=== PATIENT | male | born 1965 | race Caucasian/White ===

== ENCOUNTER 2018-03-08 14:57 | Inpatient (IN) ==
[2018-03-08] MEDS ORDERED: 0.9 % Sodium Chloride 1,000 ML IVC ONE (15:15)
[2018-03-08] MEDS ORDERED: *HR* Metoprolol 5 MG/5 ML VIAL IVP ONE (15:29)
[2018-03-08] MEDS ORDERED: Isovue-370 500 ML INFUS..BTL IV ONE (15:29)
--- NOTE | 2018-03-08 15:51 | Emergency Department Note ---
Disposition Clinical Impression: Atrial flutter with rapid ventricular response, Tobacco abuse Disposition: Admitted As Inpatient Condition: Fair Time of Disposition: 18:03 General Adult HPI - General Chief complaint: ED Recheck/Abnormal Lab/Rx Stated complaint: "abnormal ekg,SHEBA"-from PAT Time Seen by Provider: 03/08/18 15:14 Source: patient Mode of arrival: wheelchair Limitations: no limitations Nursing Notes Reviewed: Yes Vital Signs Reviewed: Yes - History of Present Illness HPI Narrative: 52 year old male with a history of tobacco use, hypertension presents for evaluation of a fast heart rate. Patient states that he was at pre-evaluation testing where he was going to have an operation on his knee and was noted have a fast heart rate. Patient states he did have a history of a fast heart rate by his primary care doctor in the recent past but no evaluation was done at that time. States he been feeling short of breath for the past couple days. Also states chronic anterior chest pain. States it is been persistent. Denies any nausea or vomiting. Denies any fevers. Reports a chronic cough due to smoking. Denies any abdominal pain. Denies history of heart attacks or strokes. Denies history of any arrhythmias. - Related Data Home Medications Medication Instructions Recorded Confirmed Albuterol Sulfate [Proair Hfa] 2 puff IH Q6H PRN 03/08/18 03/08/18 Atenolol/Chlorthalidone [Tenoretic 1 tab PO DAILY 03/08/18 03/08/18 100 Tablet] Cyclobenzaprine [Flexeril] 10 mg PO HS 03/08/18 03/08/18 Gabapentin [Neurontin] 300 mg PO BID 03/08/18 03/08/18 Losartan Potassium [Cozaar] 50 mg PO DAILY 03/08/18 03/08/18 Omeprazole [PriLOSEC] 20 mg PO DAILY 03/08/18 03/08/18 Oxycodone HCl/Acetaminophen 1 tab PO TID PRN 03/08/18 03/08/18 [Percocet 5-325 mg Tablet] Paroxetine [Paxil] 20 mg PO DAILY 03/08/18 03/08/18 Pravastatin Sodium [Pravachol] 20 mg PO DAILY 03/08/18 03/08/18 Umeclidinium [place] [Incruse 1 puff IH DAILY 03/08/18 03/08/18 Ellipta] Allergies Allergy/AdvReac Type Severity Reaction Status Date / Time meloxicam [From Mobic] AdvReac Difficulty Verified 03/08/18 15:48 Breathing All systems ED: reviewed and negative except as stated. Constitutional: Denies: fever Cardiovascular: Reports: chest pain. Denies: palpitations Respiratory: Reports: cough, dyspnea. Denies: sputum production Gastrointestinal: Denies: abdominal pain, nausea, vomiting Past Medical History - Past Medical History Source: patient Physical Exam - General Limitations: no limitations General appearance: alert, in no apparent distress, obese - Head Head exam: atraumatic, normal inspection - Eye Eye exam: Present: normal appearance, EOMI - ENT ENT exam: normal exam, mucous membranes moist - Neck Neck exam: Present: normal inspection - Chest Chest inspection: Present: normal inspection. Absent: symmetric chest wall rise - Respiratory Respiratory exam: Present: normal lung sounds bilaterally. Absent: respiratory distress - Cardiovascular Cardiovascular exam: Present: regular rate, tachycardia. Absent: systolic murmur - Abdominal Exam Abdominal exam: Present: soft, Non-Tender - Extremities Exam Extremities exam: Present: normal inspection. Absent: pedal edema - Back Exam Back exam: Present: normal inspection - Neurological Exam Neurological exam: Present: alert, oriented X3, CN II-XII intact - Skin Skin exam: Present: warm, dry, intact, normal color Course Course Narrative: Patient seen and examined. Patient was noted to have a fast heart rate. Appears to be regular. Appears to be atrial flutter with a rapid rate in the 140s. Patient's blood pressures preserved. Patient will get extensive evaluation including CT [place] chest given his tachycardia as well as his dyspnea over 2 days. Patient will likely require admission. - Reevaluation(s) Reevaluation #1: Patient did not convert with but metoprolol. Time: 16:47 Reevaluation #2: Patient seen and examined. Patient states he would like some pain medication for his back. Typically takes Percocet. Patient also took full dose aspirin prior to ED arrival. Time: 17:58 Reevaluation #3: Patient's heart rate is improving on Cardizem. Time: 18:40 Vital Signs Temperature 98.5 F 03/08/18 15:02 Pulse Rate 134 03/08/18 15:02 Respiratory Rate 20 03/08/18 15:02 Blood Pressure 107/61 03/08/18 15:02 O2 Sat by Pulse Oximetry 97 03/08/18 15:02 Temperature 97.8 F 03/08/18 21:17 Pulse Rate 78 03/08/18 21:17 Respiratory Rate 20 03/08/18 21:17 Blood Pressure 118/91 03/08/18 21:17 O2 Sat by Pulse Oximetry 99 03/08/18 21:17 Oxygen Delivery Oxygen Delivery Room Air Medical Decision Making - MDM Narrative Medical decision making narrative: 52-year-old male persists for evaluation of irregular heart rhythm. Patient was noted to be a flutter with 2-1 conduction. Patient initially was started with Lopressor however did not initially converted with Lopressor and was started on Cardizem drip. Patient remained hemodynamically stable. No history of heart irregularities in the past. Patient had a CTA chest was negative for pulmonary embolism or pneumonia. Patient does have slight elevation of the BNP. Patient benefit from further evaluation regarding his atrial flutter. Patient will also benefit from formal heart echo. Patient is agreeable with this plan of care. - Lab Data Lab results reviewed: Yes I reviewed the patient's lab results. Result diagrams: 03/08/18 15:31 03/08/18 15:31 Lab Results 03/08/18 03/08/18 03/08/18 Range/Units 15:31 15:31 15:32 WBC 12.4 H (4.3-11.1) K/mcL RBC 4.69 (4.19-5.50) M/mcL Hgb 15.1 (12.9-16.9) g/dL Hct 43.0 (37.5-50.1) % MCV 91.7 (83.0-100.0) fL MCH 32.2 (28.0-33.3) pg MCHC 35.1 (31.6-35.5) g/dL RDW 13.8 (11.5-14.5) % Plt Count 289 (140-400) K/mcL MPV 10.3 (9.4-12.4) fL Immature Gran % 0.3 (0-4) % Seg Neutrophils % 67.9 % Lymphocytes % 20.5 % Monocytes % 9.1 % Eosinophils % 1.7 % Basophils % 0.5 % Neutrophils # 8.4 (1.6-8.9) K/mcL Lymphocytes # 2.5 (0.6-4.6) K/mcL Monocytes # 1.1 (0.0-1.3) K/mcL Eosinophils # 0.2 (0.0-0.6) K/mcL Basophils # 0.1 (0.0-0.2) K/mcL Sodium 134 L (136-145) mEq/L Potassium 3.7 (3.5-5.1) mEq/L Chloride 98 (98-107) mEq/L Carbon Dioxide 26 (23-29) mEq/L BUN 22 H (6-20) mg/dL Creatinine 1.15 (0.70-1.30) mg/dL Est GFR ( Amer) > 60 (> 60) Est GFR (Non-Af Amer) > 60 (> 60) BUN/Creatinine Ratio 19 (6-26) Glucose 94 (70-105) mg/dL Calculated Osmolality 281 (280-300) Calcium 9.4 (8.6-10.3) mg/dL Troponin I < 0.03 (< 0.04) ng/mL B-Natriuretic Peptide 154 H (Less than 100) pg/mL TSH 2.592 (0.340-5.600) mcIU/mL - Radiology Data Radiology results reviewed: Yes I reviewed the patient's radiology results. Chest X-Ray 03/08/18 15:07 IMPRESSION: No evidence of acute cardiopulmonary disease. D/ / Zac Hodge MD / Zac Hodge MD Interpreting Provider: Zac Hodge MD Chest CTA 03/08/18 15:29 IMPRESSION: No evidence of pulmonary embolism or acute pulmonary abnormality. D/ / Don Rao MD / Don Rao MD Interpreting Provider: Don Rao MD - EKG Data EKG #1 EKG attestation: Yes I reviewed and interpreted this EKG. Rate: tachycardia Rhythm: A. flutter Rulo/QRS: left axis deviation ST segment depression in: v1, v2 T wave inversions noted in: v1, v2 When compared to previous EKG there are: previous EKG unavailable Interpretation: nonspecific ST-T wave changes EKG #2 EKG attestation: Yes I reviewed and interpreted this EKG. Rate: tachycardia Rhythm: A. flutter Rulo/QRS: left axis deviation ST segment depression in: v1, v2 T wave inversions noted in: v1, v2, v3 Interpretation: nonspecific ST-T wave changes Jose - Jose Situation: Demographics Background: Presenting Complaint Assessment: Vital Signs, Course and respsone to treatment, Patient/Family Expectation Recommendation: Barrier(s) to disposition, Recommendation based on pending studies, treatments, or consults Jose Report Given to: Dr. Nina Garcia Repor Time: 18:03 Attestation Statement - Attestation Attestation: I examined this patient and my medical decision-making was reviewed with the Resident Physician. I agree with the documented findings, disposition and treatment plan as described except to the extent set forth below. Findings consistent with atrial flutter. Rate is now controlled with Cardizem. Patient will be admitted for cardiac consultation. Patient actually presented after preadmission testing found atrial flutter. Patient has no history of atrial flutter. Stable at time of admission. I spent greater than 35 minutes of critical care time resuscitating C acutely ill patient suffering from atrial flutter requiring multiple medications including Cardizem infusion. This was excluding billable procedures.
[2018-03-08 16:02] LABS: Basophils # 0.1 K/mcL (0.0-0.2); Basophils % 0.5 %; Eosinophils # 0.2 K/mcL (0.0-0.6); Eosinophils % 1.7 %; Hemoglobin 15.1 g/dL (12.9-16.9); Immature Granulocytes % 0.3 % (0-4); Lymphocytes # 2.5 K/mcL (0.6-4.6); Lymphocytes % 20.5 %; Mean Corpuscular HGB Conc 35.1 g/dL (31.6-35.5); Mean Corpuscular Hemoglobin 32.2 pg (28.0-33.3); Mean Corpuscular Volume 91.7 fL (83.0-100.0); Mean Platelet Volume 10.3 fL (9.4-12.4); Monocytes # 1.1 K/mcL (0.0-1.3); Monocytes % 9.1 %; Neutrophils # 8.4 K/mcL (1.6-8.9); Platelet Count 289 K/mcL (140-400); Red Blood Count 4.69 M/mcL (4.19-5.50); Red Cell Distribution Width 13.8 % (11.5-14.5); Segmented Neutrophils % 67.9 %
[2018-03-08 16:27] LABS: BUN/Creatinine Ratio 19 (6-26); Blood Urea Nitrogen 22 mg/dL (6-20); Calcium 9.4 mg/dL (8.6-10.3); Carbon Dioxide 26 mEq/L (23-29); Chloride 98 mEq/L (98-107); Glucose 94 mg/dL (70-105); Osmolality,Calculated 281 (280-300); Potassium 3.7 mEq/L (3.5-5.1); Sodium 134 mEq/L (136-145); eGFR For Non-African Americans > 60 (> 60)
[2018-03-08 16:28] LABS: Troponin I < 0.03 ng/mL (< 0.04)
[2018-03-08 16:42] LABS: Thyroid Stimulating Hormone 2.592 mcIU/mL (0.340-5.600)
[2018-03-08] MEDS ORDERED: *HR* OxyCODONE/APAP 5/325 TABLET PO ONE (17:57)
[2018-03-08] MEDS ORDERED: Naloxone 0.4 MG/ML INJ IVP PRN (18:28)
[2018-03-08] MEDS ORDERED: *HR* Heparin 5,000 UNIT/ML VIAL IVP PRN ×2 (18:33)
[2018-03-08] MEDS ORDERED: *HR* Heparin 5,000 UNIT/ML VIAL IVP ONE (18:33)
--- NOTE | 2018-03-08 18:35 | Internal Med History&Physical ---
Date of Encounter: 03/08/18 Time of Encounter: 18:00 Internal Medicine - H&P: HPI Chief complaint: intermittent SOB History of present illness: Mr. Bergman is a 52 year old male with PMHx of HTN, morbid obesity, tobacco use, presented to the ED for mx of aflutter. He underwent pre-operative testing for L knee arthroscopy when his EKG showed aflutter with 2:1 conduction. No ischemic changes noted. Of note, patient had been experiencing intermittent SOB but denies chest pain, N/V, palpitation, diaphoresis, orthopnea, PND, and LE swelling. No fever/chills, GI or symptoms. No joint pain, rash, heat intolerance, or weight loss. On presentation to the ED, his HR was 150, again in aflutter with RVR. Labs were largely unremarkable with an exception of mild leukocytosis. TSH and electrolytes WNL. CT chest angio was not significant. He was given IV lopressor with minimal HR control hence was started on dilt gtt and admitted for further mx. Past Med Surg Social Fam HX - Past Medical History Attestation: Yes The following information was validated with the patient. Medical history: arthritis, COPD, hyperlipidemia, hypertension Psychiatric history: anxiety, depression - Past Surgical History Additional surgical history: knee surgery mult. injections to back - Social History Smoking Status: Current every day smoker Smokeless Tobacco Status: No Alcohol use: occasionally Drug use: none Internal Medicine - H&P: Meds Albuterol Sulfate [Proair Hfa] 2 puff IH Q6H PRN 03/08/18 [History] Atenolol/Chlorthalidone [Tenoretic 100 Tablet] 1 tab PO DAILY 03/08/18 [History] Cyclobenzaprine [Flexeril] 10 mg PO HS 03/08/18 [History] Gabapentin [Neurontin] 300 mg PO BID 03/08/18 [History] Losartan Potassium [Cozaar] 50 mg PO DAILY 03/08/18 [History] Omeprazole [PriLOSEC] 20 mg PO DAILY 03/08/18 [History] Oxycodone HCl/Acetaminophen [Percocet 5-325 mg Tablet] 1 tab PO TID PRN [History] Paroxetine [Paxil] 20 mg PO DAILY 03/08/18 [History] Pravastatin Sodium [Pravachol] 20 mg PO DAILY 03/08/18 [History] Umeclidinium [place] [Incruse Ellipta] 1 puff IH DAILY 03/08/18 [History] 3 Allergy/AdvReac Type Severity Reaction Status Date / Time meloxicam [From Mobic] AdvReac Difficulty Verified 03/08/18 15:48 Breathing All Systems PM: A 10-system review of systems was performed and is negative for pertinent findings except as documented above in the HPI. - Constitutional Vitals: Temp Pulse Resp BP Pulse Ox 98.5 F 138 20 103/89 93 03/08/18 16:01 03/08/18 18:00 03/08/18 18:00 03/08/18 18:00 03/08/18 18:00 Exam: General: Alert and oriented HEENT:EOM, pupils equal, round, and reactive. Cardiovascular:Normal S1 & S2, tachycardic, regular rhythm, no murmurs or gallops. No JVD. Lungs:Normal breath sounds, no wheezes or crackles. Abdomen:Soft, non-tender, no rigidity. Extremities:No deformity, no edema or tenderness, no joint swelling. Neurological:Normal cognition and motor skills. Skin:Normal color, no rash, no lesions. Pulses:Carotid and radial pulses normal +2. Rest of the physical exam is non-contributory Internal Med - H&P Results - Labs CBC & Chem 7: 03/08/18 15:31 03/08/18 15:31 Labs: Short CBC 03/08/18 Range/Units 15:31 WBC 12.4 H (4.3-11.1) K/mcL Hgb 15.1 (12.9-16.9) g/dL Hct 43.0 (37.5-50.1) % Plt Count 289 (140-400) K/mcL Neutrophils # 8.4 (1.6-8.9) K/mcL BMP 03/08/18 15:31 Sodium 134 L Potassium 3.7 Chloride 98 Carbon Dioxide 26 BUN 22 H Creatinine 1.15 Glucose 94 Calcium 9.4 Cardiac Enzymes 03/08/18 Range/Units 15:31 Troponin I < 0.03 (< 0.04) ng/mL - Impressions ITS Impressions Chest X-Ray 03/08/18 15:07 IMPRESSION: No evidence of acute cardiopulmonary disease. D/ / Zac Hodge MD / Zac Hodge MD Interpreting Provider: Zac Hodge MD Chest CTA 03/08/18 15:29 IMPRESSION: No evidence of pulmonary embolism or acute pulmonary abnormality. D/ / Don Rao MD / Don Rao MD Interpreting Provider: Don Rao MD - Assessment and plan (1) Atrial flutter with rapid ventricular response Current Visit: Yes Status: Acute Assessment and plan: incidental finding during pre-op eval, pt does complain of intermittent SOB rate < 110 after dilt gtt was started, continue CHADSVasc score of 1 for HTN, will keep him on home dose of ASA trend troponin, monitor electrolytes Echocardiogram cardiology consult for ?need for EP ablation (2) Hypertension Current Visit: Yes Status: Acute Assessment and plan: resume home meds Qualifiers: Hypertension type: essential hypertension Qualified Code(s): I10 - Essential (primary) hypertension (3) Morbid obesity Current Visit: Yes Status: Acute Assessment and plan: Aflutter and HTN likely a complication of morbid obesity and probable untreated KAVITHA will benefit from sleep study outpatient (4) Tobacco abuse Current Visit: Yes Status: Acute Assessment and plan: counseling on smoking cessation done NRT (5) DVT prophylaxis Current Visit: Yes Status: Acute Assessment and plan: SQ heparin - Time Spent With Patient Total time spent is greater than 50% in coordination of care (as documented) at patient's floor/unit and/or counseling patient:
[2018-03-08] MEDS ORDERED: Heparin 25,000 UNIT/500 ML D5W 25,000 UNIT/500 ML BAG IVC SCH (18:45)
[2018-03-08] MEDS: *HR* Heparin 5,000 UNIT/ML VIAL SQ SCH (22:28)
[2018-03-08] MEDS: Gabapentin 300 MG CAPSULE PO SCH (22:28)
[2018-03-08] MEDS: Nicotine 21 MG PATCH.TD24 TD SCH (22:29)
[2018-03-08] MEDS: *HR* OxyCODONE/APAP 5/325 TABLET PO PRN (23:35)
[2018-03-09 04:00] LABS: Basophils # 0.1 K/mcL (0.0-0.2); Basophils % 0.6 %; Eosinophils # 0.2 K/mcL (0.0-0.6); Eosinophils % 2.1 %; Hematocrit 39.9 % (37.5-50.1); Immature Granulocytes % 0.3 % (0-4); Lymphocytes # 3.1 K/mcL (0.6-4.6); Lymphocytes % 29.2 %; Mean Corpuscular HGB Conc 34.1 g/dL (31.6-35.5); Mean Corpuscular Hemoglobin 31.6 pg (28.0-33.3); Mean Corpuscular Volume 92.8 fL (83.0-100.0); Mean Platelet Volume 10.5 fL (9.4-12.4); Monocytes # 0.9 K/mcL (0.0-1.3); Monocytes % 8.6 %; Neutrophils # 6.4 K/mcL (1.6-8.9); Platelet Count 270 K/mcL (140-400); Segmented Neutrophils % 59.2 %
[2018-03-09 04:05] LABS: Hemoglobin 13.6 g/dL (12.9-16.9)
[2018-03-09 04:15] LABS: BUN/Creatinine Ratio 19 (6-26); Blood Urea Nitrogen 20 mg/dL (6-20); Calcium 9.3 mg/dL (8.6-10.3); Carbon Dioxide 25 mEq/L (23-29); Chloride 100 mEq/L (98-107); Glucose 112 mg/dL (70-105); Magnesium 1.7 mg/dL (1.6-2.6); Osmolality,Calculated 283 (280-300); Potassium 3.5 mEq/L (3.5-5.1); Sodium 135 mEq/L (136-145); eGFR For Non-African Americans > 60 (> 60)
[2018-03-09 04:17] LABS: Troponin I < 0.03 ng/mL (< 0.04)
[2018-03-09] MEDS: *HR* Heparin 5,000 UNIT/ML VIAL SQ SCH (05:03)
[2018-03-09] MEDS: *HR* OxyCODONE/APAP 5/325 TABLET PO PRN ×3 (05:06→20:11)
[2018-03-09] MEDS ORDERED: (Umeclidinium Bromide [Incruse Ellipta] 1 PUFF) IH SCH (09:00)
[2018-03-09] MEDS ORDERED: ATENOLOL PO SCH (09:00)
[2018-03-09] MEDS ORDERED: CHLORTHALIDONE PO SCH (09:00)
[2018-03-09] MEDS: Gabapentin 300 MG CAPSULE PO SCH ×2 (09:37→20:10)
[2018-03-09] MEDS: Aspirin Enteric Coated 81 MG Tablet PO SCH (09:37)
[2018-03-09] MEDS: Nicotine 21 MG PATCH.TD24 TD SCH (09:38)
--- NOTE | 2018-03-09 10:11 | Internal Med Progress Note ---
Date of Encounter: 03/09/18 Time of Encounter: 09:00 - Assessment and plan (1) Atrial flutter with rapid ventricular response Current Visit: Yes Status: Acute Assessment and plan: Incidental findings during pre-op evaluation. Has chronic shortness of breath denies it is worse than baseline. Likely has underlying sleep apnea, never had a previous sleep evaluation for sleep apnea. Does not drink any caffeine. He drinks 1/5 of hard alcohol a week. -At admission heart rate was in the 130s to 140s and after starting IV cardizem drip it is regular rate of 70s. -Troponin x3 negative -Echocardiogram pending -No electrolyte abnormality -Cardiology consulted -CHADsVac score of 1, continue aspirin (2) Tobacco abuse Current Visit: Yes Status: Acute Assessment and plan: counseling on smoking cessation -Not interested in quitting at this time -NRT (3) Hypertension Current Visit: Yes Status: Acute Assessment and plan: No acute hypertension. Controlled blood pressure. -Continue home losartan 50 mg daily -Continue atenolol/chlorthalidone Qualifiers: Hypertension type: essential hypertension Qualified Code(s): I10 - Essential (primary) hypertension (4) Morbid obesity Current Visit: Yes Status: Chronic Assessment and plan: Aflutter and HTN likely a complication of morbid obesity and probable untreated KAVITHA will benefit from sleep study outpatient -Discussed the benefit of a sleep study outpatient (5) Chronic knee pain Current Visit: Yes Status: Acute Assessment and plan: He was chronic knee pain, most likely secondary to his body habitus. Was having pre-op evaluation for knee surgery prior to requiring admission. No edema or erythema noted. -On home dose of percocet 5/325 TID -Can continue percocet inpatient Qualifiers: Laterality: bilateral Qualified Code(s): M25.561 - Pain in right knee; M25.562 - Pain in left knee; G89.29 - Other chronic pain (6) DVT prophylaxis Current Visit: Yes Status: Acute Assessment and plan: SQ heparin - Time Spent With Patient Total time spent is greater than 50% in coordination of care (as documented) at patient's floor/unit and/or counseling patient: - Subjective Interval history: Mr. Bergman was seen at bedside this morning. He presented to the ED yesterday after his pre-operative testing for knee arthroscopy showed 2: 1 conduction atrial flutter. There were no other changes on his EKG. At the ED he received IV lopressor and was transitioned to IV cardizem drip upon admission. He is on 5 mg/hr and his heart rate is 79, while the rhythm is still irregular. This morning he stated he has chronic shortness of breath due to deconditioning. He denied chest pain at rest or with exertion, heart palpitation, fever, chills, nausea, vomiting or diaphoresis. - Constitutional Vitals: Temp Pulse Resp BP Pulse Ox 97.7 F 79 17 126/75 94 03/09/18 07:18 03/09/18 07:18 03/09/18 07:18 03/09/18 07:18 03/09/18 09:46 General appearance: Present: A&O X 3, no acute distress, answers questions appropriately - Head Head exam: Present: atraumatic, normocephalic - Eye Eye exam: Present: EOMI, sclera anicteric - ENT ENT exam: Present: mucous membranes moist - Neck Neck exam general surgery: Present: full ROM, normal inspection - Respiratory Respiratory exam: Present: CTAB. Absent: rales, stridor, wheezes - Cardiovascular Cardiovascular exam: Absent: clicks, gallop, JVD, tachycardia (regular rate with irregular rhythm) - GI/Abdominal GI/Abdominal exam: Present: soft. Absent: firm, rigid, tenderness - Extremities Exam Extremities exam: Present: warm. Absent: joint swelling, pedal edema, tenderness - Psychiatric Psychiatric exam: Present: normal affect, normal mood - Skin Skin exam: Present: dry, warm. Absent: erythema Internal Medicine: Result - Labs CBC & Chem 7: 03/09/18 03:15 03/09/18 03:15 Labs: Short CBC 03/09/18 Range/Units 03:15 WBC 10.7 (4.3-11.1) K/mcL Hgb 13.6 D (12.9-16.9) g/dL Hct 39.9 (37.5-50.1) % Plt Count 270 (140-400) K/mcL Neutrophils # 6.4 (1.6-8.9) K/mcL BMP 03/09/18 03:15 Sodium 135 L Potassium 3.5 Chloride 100 Carbon Dioxide 25 BUN 20 Creatinine 1.08 Glucose 112 H Calcium 9.3 Cardiac Enzymes 03/08/18 03/09/18 Range/Units 21:27 03:15 Troponin I < 0.03 < 0.03 (< 0.04) ng/mL Consult Discharge Plan - Plan Referrals: Rakan Hamlin CNP [Primary Care Provider] -
[2018-03-09] MEDS ORDERED: Perflutren Lipid Microsphere 1.3 ML in 0.9 % Sodium Chloride 8.7 ML IVP ONE (10:52)
--- NOTE | 2018-03-09 11:13 | Cardiology Consult Note ---
Date of Encounter: 03/09/18 Time of Encounter: 11:11 Assessment and Plan (1) Atrial flutter with rapid ventricular response Current Visit: Yes Status: Acute Presented with new A-Flutter from PAT--unclear onset. Denies chest pain or palpitation. HR 140s on presentation, started on Cardizem gtt at 5mg/hr--HR low 100s at bedside. Mag, K and TSH WNL. Troponins negative x 3. TTE to evaluate structure and function. Plan for NGHIA DCCV tomorrow in attempt to restore SR. Will start heparin gtt. [id number] is 1 (HTN). Since plan to attempt to restore SR, will need anticoagulation for minimum of 1 month after DCCV. Will dong check NOAC. Plan to refer as outpt to Dr. Maycol Grimaldo to consider A-Flutter ablation if recurrence. Suspect KAVITHA. Recommend outpt sleep study. (2) Tobacco abuse Current Visit: Yes Status: Acute Smoking cessation counseling given. (3) Hypertension Current Visit: Yes Status: Acute Controlled on current meds. Qualifiers: Hypertension type: essential hypertension Qualified Code(s): I10 - Essential (primary) hypertension Discussion w patient/family: The assessment and plan as outlined above was discussed with the patient and/or family members who expressed understanding and agreement. All questions were answered. Thank you for involving us in the care of your patient. Please call with any questions. I will discuss all the above with Dr. Canales and make changes as necessary. History of Present Illness Consult date: 03/09/18 Consult reason: A-Flutter RVR History of present illness: Mr. Bergman is a 52 year old male with PMHx of HTN, morbid obesity, tobacco use, presented to the ED for new diagnosis of A-Flutter RVR. He went to pre- admission testing for L knee arthroscopy when his EKG showed aflutter, sent to ED. Pt reports intermittent dyspnea, but denies chest pain, N/V, palpitations, diaphoresis, orthopnea, PND, and LE swelling. On presentation to the ED, his HR was 150, TSH and electrolytes WNL. CT chest angio was negative. He was started on a cardizem gtt at 5mg/hr, current HR low 100s at bedside. No acute complaints currently. Past Med Surg Social Fam HX - Past Medical History Medical history: COPD, hyperlipidemia, hypertension Psychiatric history: no psych history - Past Surgical History Surgical History: arthroscopy Additional surgical history: Bilateral knee arthroscopies. Back injections - Social History Smoking Status: Current every day smoker Packs per day: 2 Smokeless Tobacco Status: No Alcohol use: occasionally Drug use: none Medications and Allergies Albuterol Sulfate [Proair Hfa] 2 puff IH Q6H PRN 03/08/18 [History] Atenolol/Chlorthalidone [Tenoretic 100 Tablet] 1 tab PO DAILY 03/08/18 [History] Cyclobenzaprine [Flexeril] 10 mg PO HS 03/08/18 [History] Gabapentin [Neurontin] 300 mg PO BID 03/08/18 [History] Losartan Potassium [Cozaar] 50 mg PO DAILY 03/08/18 [History] Omeprazole [PriLOSEC] 20 mg PO DAILY 03/08/18 [History] Oxycodone HCl/Acetaminophen [Percocet 5-325 mg Tablet] 1 tab PO TID PRN [History] Paroxetine [Paxil] 20 mg PO DAILY 03/08/18 [History] Pravastatin Sodium [Pravachol] 20 mg PO DAILY 03/08/18 [History] Umeclidinium [place] [Incruse Ellipta] 1 puff IH DAILY 03/08/18 [History] 3 Allergy/AdvReac Type Severity Reaction Status Date / Time meloxicam [From Mobic] AdvReac Difficulty Verified 03/08/18 15:48 Breathing All Systems Review: The remainder of the systems were reviewed and are negative - Cardiovascular Cardiovascular: dyspnea on exertion - Respiratory Respiratory: dyspnea Physical Examination Vital Signs, Last 4 Hours Temp Pulse Resp BP Pulse Ox 03/09/18 09:46 94 03/09/18 07:18 97.7 F 79 17 126/75 92 Vital Signs Temp Pulse Resp BP Pulse Ox 03/09/18 09:46 94 03/09/18 07:18 97.7 F 79 17 126/75 92 03/09/18 04:52 98 17 121/75 96 03/09/18 00:09 98.9 F 74 16 133/84 03/08/18 21:35 98 03/08/18 21:17 97.8 F 78 20 118/91 99 03/08/18 21:00 20 113/64 03/08/18 19:17 101 20 136/70 93 03/08/18 18:45 103 20 122/70 93 03/08/18 18:00 138 20 103/89 93 03/08/18 17:30 144 20 123/80 93 03/08/18 17:02 147 20 114/96 93 03/08/18 16:45 152 20 103/71 94 03/08/18 16:30 151 20 89/49 92 03/08/18 16:01 98.5 F 152 20 112/82 94 03/08/18 16:00 132 20 101/81 93 03/08/18 15:57 94 03/08/18 15:45 152 20 112/82 94 03/08/18 15:25 138 20 120/100 95 03/08/18 15:02 98.5 F 134 20 107/61 97 Intake and Output 03/08/18 03/09/18 03/09/18 23:59 07:59 15:59 Intake Total 1050 / 1050 50 / 50 480 / 480 Output Total 500 / 500 400 / 400 400 / 400 Balance 550 / 550 -350 / -350 80 / 80 Intake: IV Fluids 1050 / 1050 50 / 50 0.9 % Sodium Chloride 1,000 ML 1000 / 1000 @ 999 mls/hr IVC .Q1H1M ONE Rx# :[id number] Cardizem 50 MG In 0.9 % Sodium 50 / 50 50 / 50 Chloride 40 ML @ 5 MG/HR 5 mls/ hr IVC .Q10H [facility] Rx#:[id number] Oral 0 / 0 0 / 0 480 / 480 Output: Urine 500 / 500 400 / 400 400 / 400 Other: Meal Breakfast Percent of Meal Consumed 100% Weight 179.2 kg 179.2 kg Patient Weight 03/09/18 23:59 Weight 179.2 kg General: Conversant, No Apparent Distress HEENT: Atraumatic, Normocephaly, Mucus Membranes Moist Neck: No JVD, Normal carotid pulses Cardiac: Other (irregular) Lungs: Normal Breath Sounds, No Wheeze, Rales, Rhonchi Neuro: Alert and responsive, No focal deficits noted Abdomen: Soft, Non-Tender Skin: No rashes noted on visualized skin Musculoskeletal: No Chest Wall Tenderness Extremities: No Clubbing, No Cyanosis, No Edema, Normal Pulses Results 03/09/18 03:15 03/09/18 03:15 Lab Results 03/08/18 03/09/18 03/09/18 21:27 03:15 03:15 WBC 10.7 Hgb 13.6 D Hct 39.9 Plt Count 270 Sodium 135 L Potassium 3.5 Chloride 100 Carbon Dioxide 25 BUN 20 Creatinine 1.08 Glucose 112 H Calcium 9.3 Magnesium 1.7 Troponin I < 0.03 03/09/18 03:15 WBC Hgb Hct Plt Count Sodium Potassium Chloride Carbon Dioxide BUN Creatinine Glucose Calcium Magnesium Troponin I < 0.03 Short CBC 03/09/18 03/08/18 Range/Units 03:15 15:31 WBC 10.7 12.4 H (4.3-11.1) K/mcL Hgb 13.6 D 15.1 (12.9-16.9) g/dL Hct 39.9 43.0 (37.5-50.1) % Plt Count 270 289 (140-400) K/mcL Neutrophils # 6.4 8.4 (1.6-8.9) K/mcL BMP 03/09/18 03/08/18 Range/Units 03:15 15:31 Sodium 135 L 134 L (136-145) mEq/L Potassium 3.5 3.7 (3.5-5.1) mEq/L Chloride 100 98 (98-107) mEq/L Carbon Dioxide 25 26 (23-29) mEq/L BUN 20 22 H (6-20) mg/dL Creatinine 1.08 1.15 (0.70-1.30) mg/dL Glucose 112 H 94 (70-105) mg/dL Calcium 9.3 9.4 (8.6-10.3) mg/dL Cardiac Enzymes 03/09/18 03/08/18 03/08/18 Range/Units 03:15 21:27 15:31 Troponin I < 0.03 < 0.03 < 0.03 (< 0.04) ng/mL Impressions Chest X-Ray 03/08/18 15:07 IMPRESSION: No evidence of acute cardiopulmonary disease. D/ / Zac Hodge MD / Zac Hodge MD Interpreting Provider: Zac Hodge MD Chest CTA 03/08/18 15:29 IMPRESSION: No evidence of pulmonary embolism or acute pulmonary abnormality. D/ / Don Rao MD / Don Rao MD Interpreting Provider: Don Rao MD Active Medications Albuterol Sulfate (Albuterol Inhaler) 2 puff IH Q6H PRN PRN Reason: Dyspnea Stop: 09/07/18 18:32 Aspirin (Aspirin Ec) 81 mg PO DAILY [facility] Stop: 09/08/18 09:01 Last Admin: 03/09/18 09:37 Dose: 81 mg Cyclobenzaprine HCl (Flexeril) 10 mg PO HS [facility] Stop: 09/07/18 21:01 Last Admin: 03/08/18 22:28 Dose: 10 mg Gabapentin (Neurontin) 300 mg PO BID [facility] Stop: 09/07/18 21:01 Last Admin: 03/09/18 09:37 Dose: 300 mg Heparin Sodium (Porcine) (Heparin) 5,000 unit SQ Q8HCO [facility] Stop: 09/07/18 22:01 Last Admin: 03/09/18 05:03 Dose: 5,000 unit Diltiazem HCl 50 mg/ Sodium (Chloride) 50 mls @ 5 mls/hr IVC .Q10H [facility]; 5 MG/HR PRN Reason: Protocol Stop: 09/07/18 16:46 Last Admin: 03/09/18 06:16 Dose: 5 mg/hr, 5 mls/hr Losartan Potassium (Cozaar) 50 mg PO DAILY [facility] Stop: 09/08/18 09:01 Last Admin: 03/09/18 09:37 Dose: 50 mg Naloxone HCl (Narcan) 0.4 mg IVP Q2MIN PRN PRN Reason: SEE COMMENTS Stop: 09/07/18 18:29 Nicotine (Nicoderm) 21 mg TD DAILY [facility] PRN Reason: Protocol Stop: 09/07/18 18:46 Last Admin: 03/09/18 09:38 Dose: 21 mg Omeprazole (Prilosec) 20 mg PO DAILY@0730 [facility] PRN Reason: Protocol Stop: 09/08/18 07:31 Last Admin: 03/09/18 09:36 Dose: 20 mg Oxycodone/Acetaminophen (Percocet 5/325) 1 each PO TID PRN PRN Reason: Pain Stop: 09/07/18 18:32 Last Admin: 03/09/18 05:06 Dose: 1 each Paroxetine HCl (Paxil) 20 mg PO DAILY [facility] PRN Reason: Protocol Stop: 09/08/18 09:01 Last Admin: 03/09/18 09:40 Dose: 20 mg Pharmacy Profile Note (Patient Taking Own Medication) 0 each PO DAILY [facility] Stop: 09/08/18 09:01 Last Admin: 03/09/18 09:39 Dose: Not Given Pharmacy Profile Note (Patient Taking Own Medication) 0 each IH DAILY [facility] Stop: 09/08/18 09:01 Last Admin: 03/09/18 09:39 Dose: Not Given Simvastatin (Zocor) 10 mg PO DAILY [facility] Stop: 09/08/18 09:01 Last Admin: 03/09/18 09:36 Dose: 10 mg - Imaging and Cardiology Echo: pending - EKG Interpretation EKG results cardiology: personally reviewed (A-Flutter RVR rate 140s), other ( 12 hr tele AVG HR 83, A-Flutter) Consult Discharge Plan - Plan Referrals: Rakan Hamlin, [employer] [Primary Care Provider] -
[2018-03-09] MEDS ORDERED: *HR* Heparin 5,000 UNIT/ML VIAL IVP ONE (11:25)
[2018-03-09] MEDS ORDERED: *HR* Heparin 5,000 UNIT/ML VIAL IVP PRN ×2 (11:25)
[2018-03-09] MEDS ORDERED: Heparin 25,000 UNIT/500 ML D5W 25,000 UNIT/500 ML BAG IVC SCH (11:30)
--- NOTE | 2018-03-09 11:50 | Event Note ---
Date of Encounter: 03/09/18 Time of Encounter: 11:42 Patient was seen and examined. I agree with the progress note as written by the resident physician. Patient admitted yesterday with aflutter and has been on cardizem drip with better rate. Cardiology saw with plans for DCCV tomorrow. Started on heparin drip and need anticoags for a month. GEN: NAD CVS: rregular S1, S2, No m/r/g RESP: CTAB ABD: Soft, NT, ND, +BS EXT: No edema. 2+ DP. 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
--- NOTE | 2018-03-09 16:18 | Event Note ---
Date of Encounter: 03/09/18 Time of Encounter: 16:16 - Cardiology Event Note TTE resulted--Technically sub-optimal due to body habitus. LVEF 60%. Indeterminate diastolic function. There is no LV thrombus. RV is not well seen or evaluated. Mild TR. Not all valves were well evaluated. Unable to estimate RVSP. Guerrier checked Xarelto--requires a prior auth. Message sent to cardiology office to complete prior auth. In the meantime will start PO Xarelto 20mg daily and plan to send home with a free 30 day Xarelto card until prior auth is completed. NPO for possible NGHIA/DCCV in AM if remains in A-Flutter.
[2018-03-09] MEDS: *HR* Rivaroxaban 10 MG TABLET PO SCH (17:10)
--- NOTE | 2018-03-09 19:41 | Electrocardiograph Report ---
[place] [address] Test Date: 2018-03-08 Pat Name: Martín Bergman Department: 103 Room: 2NE21 Gender: M Incident Response Specialist: ROCHELLE : 1965 Requested By: Neftali Bond Order Number: [id number] Reading MD: Philomena Pringle Measurements Intervals [place] Rate: 143 P: 73 [place]: 166 QRS: -23 QRSD: 105 T: 56 QT: 328 QTc: 411 Interpretive Statements SINUS TACHYCARDIA, POSSIBLE ATRIAL FLUTTER BORDERLINE LEFT AXIS DEVIATION [QRS AXIS < -20] ST DEVIATION AND MODERATE T-WAVE ABNORMALITY, CONSIDER ANTERIOR ISCHEMIA [-0.1+ mV T WAVE IN V3/V4] Electronically Signed On 03-09-2018 19:40:04 EDT by Philomena Pringle
--- NOTE | 2018-03-09 20:05 | Electrocardiograph Report ---
[address] [address] Test Date: 2018-03-08 Pat Name: Martín Bergman Department: 107 Room: 2NE21 Gender: M Salt Refiner: ESTUARDO : 1965 Requested By: Maycol Alvares Order Number: [id number] Reading MD: Philomena Pringle Measurements Intervals [place] Rate: 121 P: [place]: 0 QRS: -3 QRSD: 95 T: 51 QT: 344 QTc: 416 Interpretive Statements ATRIAL FLUTTER/TACHYCARDIA WITH RAPID VENTRICULAR RESPONSE NONSPECIFIC ST & T-WAVE ABNORMALITY ABNORMAL RHYTHM ECG Electronically Signed On 03-09-2018 20:04:14 EDT by Philomena Pringle
[2018-03-10] MEDS: *HR* OxyCODONE/APAP 5/325 TABLET PO PRN ×3 (05:03→22:33)
[2018-03-10 05:04] LABS: BUN/Creatinine Ratio 18 (6-26); Blood Urea Nitrogen 20 mg/dL (6-20); Calcium 9.2 mg/dL (8.6-10.3); Carbon Dioxide 18 mEq/L (23-29); Chloride 100 mEq/L (98-107); Glucose 107 mg/dL (70-105); Osmolality,Calculated 283 (280-300); Potassium 3.8 mEq/L (3.5-5.1); Sodium 135 mEq/L (136-145); eGFR For Non-African Americans > 60 (> 60)
[2018-03-10] MEDS: Gabapentin 300 MG CAPSULE PO SCH ×2 (08:15→22:33)
[2018-03-10] MEDS: Aspirin Enteric Coated 81 MG Tablet PO SCH (08:15)
[2018-03-10] MEDS ORDERED: Lidocaine Viscous Oral Soln 15 ML SOLUTION MM PRN (10:18)
[2018-03-10] MEDS ORDERED: Tetracaine/Benzocaine/Butamben 200MG/SPRAY (100SPY/BOT) MM ONE (10:19)
[2018-03-10] MEDS ORDERED: 0.9 % Sodium Chloride 500 ML IVC ONE (10:19)
[2018-03-10] MEDS: *HR* Midazolam HCl 5 MG/5 ML VIAL IVP PRN ×3 (10:45→10:59)
[2018-03-10] MEDS: *HR* FentaNYL (PF) 100 MCG/2 ML VIAL IVP PRN ×3 (10:45→10:59)
--- NOTE | 2018-03-10 14:22 | Discharge Summary ---
<Meredith Ozuna - Last Filed: 03/10/18 14:20> - NOTES TO OUTPATIENT PROVIDER Notes to Outpatient Provider: Mr. Bergman is a 52 year old male who was found to have a flutter on his pre-op evaluation. Cardiology was consulted. Echo showed EF of 60% and required a NGHIA with cardioversion, was converted back to normal sinus rhythm. He was started on xarelto and will continue it outpatient. There is a preauthorization for the xarelto and cardiology is working on that. He is advised to consider an outpatient sleep study as the a flutter could be triggered from it. Date of Encounter: 03/10/18 Time of Encounter: 02:00 - Discharge Diagnosis (1) Atrial flutter with rapid ventricular response Priority: Primary Status: Acute (2) Tobacco abuse Priority: Secondary Status: Acute (3) Hypertension Priority: Secondary Status: Acute Qualifiers: Hypertension type: essential hypertension Qualified Code(s): I10 - Essential (primary) hypertension (4) Morbid obesity Priority: Secondary Status: Chronic (5) DVT prophylaxis Priority: Secondary Status: Acute (6) Chronic knee pain Priority: Secondary Status: Acute Qualifiers: Laterality: bilateral Qualified Code(s): M25.561 - Pain in right knee; M25.562 - Pain in left knee; G89.29 - Other chronic pain Hospital course: Mr. Bergman is a 52 year old male with PMHx of HTN, morbid obesity, tobacco use, presented to the ED for atrial aflutter found incidentally on his pre-op results , his EKG was within normal limits. He had no symptoms at presentation. He denied any chest pain, shortness of breath, nausea, diaphoresis or emesis. His troponin x3 were negative. He had an echo which showed 60% EF. He required a NGHIA for better visualization. Cardioversion converted him back to sinus rhythm. He will be discharged with 30 days of xarelto, requires prior authorization by insurance for xarelto and cardiology will do the authorization. Discharge discussed with: patient - Time Spent with Patient Total time spent providing and/or coordinating discharge services: - Discharge Medications Prescriptions: Diltiazem HCl [Cardizem [place]] 120 mg PO ONCE 30 Days #30 tab.er.24h Rivaroxaban [Xarelto] 20 mg PO ONCE 30 Days #30 tablet Home Medications: Albuterol Sulfate [Proair Hfa] 2 puff IH Q6H PRN 03/08/18 [History] Atenolol/Chlorthalidone [Tenoretic 100 Tablet] 1 tab PO DAILY 03/08/18 [History] Cyclobenzaprine [Flexeril] 10 mg PO HS 03/08/18 [History] Gabapentin [Neurontin] 300 mg PO BID 03/08/18 [History] Losartan Potassium [Cozaar] 50 mg PO DAILY 03/08/18 [History] Omeprazole [PriLOSEC] 20 mg PO DAILY 03/08/18 [History] Oxycodone HCl/Acetaminophen [Percocet 5-325 mg Tablet] 1 tab PO TID PRN [History] Paroxetine [Paxil] 20 mg PO DAILY 03/08/18 [History] Pravastatin Sodium [Pravachol] 20 mg PO DAILY 03/08/18 [History] Umeclidinium [place] [Incruse Ellipta] 1 puff IH DAILY 03/08/18 [History] Diltiazem HCl [Cardizem [place]] 120 mg PO ONCE 30 Days #30 tab.er.24h 03/10/18 [Rx] Rivaroxaban [Xarelto] 20 mg PO ONCE 30 Days #30 tablet 03/10/18 [Rx] Allergies/Adverse Reactions: 3 Allergy/AdvReac Type Severity Reaction Status Date / Time meloxicam [From Mobic] AdvReac Difficulty Verified 03/08/18 15:48 Breathing Date of admission: 03/08/18 20:39 Primary care physician: Rakan Hamlin CNP Consults: Cardiology Discharging clinician: Meredith Ozuna Anticipated date of discharge: 03/10/18 - Constitutional Vitals: Temp Pulse Resp BP Pulse Ox 97.9 F 74 16 141/81 97 03/10/18 10:21 03/10/18 10:21 03/10/18 10:21 03/10/18 10:21 03/10/18 10:21 General appearance: Present: A&O X 3, no acute distress, answers questions appropriately - Head Head exam: Present: atraumatic, normocephalic - Eye Eye exam: Present: EOMI, sclera anicteric - ENT ENT exam: Present: mucous membranes moist - Neck Neck exam general surgery: Present: full ROM, trachea midline - Respiratory Respiratory exam: Present: CTAB. Absent: rales, stridor, wheezes - Cardiovascular Cardiovascular exam: Present: RRR. Absent: JVD - GI/Abdominal GI/Abdominal exam: Present: soft. Absent: firm, guarding, rigid - Extremities Exam Extremities exam: Present: full ROM, warm. Absent: pedal edema, tenderness - Psychiatric Psychiatric exam: Present: normal affect, normal mood - Skin Skin exam: Present: dry, intact, warm. Absent: erythema - Patient Status Disposition: Home, Self-Care Condition: Fair Functional capacity at discharge: independent ambulation Overall status at discharge: patient is progressing back to baseline - Discharge Instructions Follow Up With: Rakan Hamlin CNP [Primary Care Provider] - 03/15/18 10:20 am (The patient will be seeing Denton Cummings on this scheduled visit.) - Diet and Activity Activity: increase activity as tolerated Diet: low fat, low cholesterol <Asim Diaz - Last Filed: 03/10/18 15:47> Orders not resulted at time of discharge: Pending orders 03/11/18 07:00 NM amna perf SPECT multi [NM] Routine SP pharm nuclear stress Routine Date of Encounter: 03/10/18 - Discharge Diagnosis (1) Atrial flutter with rapid ventricular response Status: Acute (2) Tobacco abuse Status: Acute (3) Hypertension Status: Acute Qualifiers: Hypertension type: essential hypertension Qualified Code(s): I10 - Essential (primary) hypertension (4) Morbid obesity Status: Chronic (5) DVT prophylaxis Status: Acute (6) Chronic knee pain Status: Acute Qualifiers: Laterality: bilateral Qualified Code(s): M25.561 - Pain in right knee; M25.562 - Pain in left knee; G89.29 - Other chronic pain Hospital course: Mr. Bergman is a 52 year old male - Time Spent with Patient Total time spent providing and/or coordinating discharge services: Date of admission: 03/08/18 20:39 Primary care physician: Rakan Hamlin CNP - Constitutional Vitals: Temp Pulse Resp BP Pulse Ox 97.9 F 74 16 141/81 97 03/10/18 10:21 03/10/18 10:21 03/10/18 10:21 03/10/18 10:21 03/10/18 10:21 - Attending Attestation Patient was seen and examined. I agree with the discharge summary as dictated above by the resident physician. Discharge plans and recommendations were made under my direct supervision.
--- NOTE | 2018-03-10 15:55 | Cardiology Progress Note ---
Date of Encounter: 03/10/18 Time of Encounter: 15:45 Assessment and Plan (1) Atrial flutter with rapid ventricular response Current Visit: Yes Status: Acute Presented with new A-Flutter from PAT--unclear onset. Denies chest pain or palpitation. HR 140s on presentation Mag, K and TSH WNL. Troponins negative x 3. s/p successful NGHIA guided DCCV today, remains in NSR upon exam. Preliminary results reviewed with Dr. Canales, LVEF appears to be reduced. Suspect cardiomyopathy may be tachycardia induced. However given risk factors for CAD, recommend ischemic evaluation. Patient is agreeable. Given BMI, he will be a 2-day study, patient aware. Also suspect untreated KAVITHA driving factor, will order overnight 02 trend. Continue Xarelto for AC. Discussion w patient/family: The assessment and plan as outlined above was discussed with the patient and/or family members who expressed understanding and agreement. All questions were answered. Thank you for involving us in the care of your patient. Please call with any questions. The patient will be discussed and reviewed with Dr. Pringle; changes to be made accordingly. Subjective Principal diagnosis: Aflutter Interval history: Seen and examined. Remains drowsy s/p NGHIA guided DCCV. Remains in NSR, HR 70's upon exam. No chest pain/discomfort or any other complaints. Objective General: Conversant, Other (morbidly obese) HEENT: Atraumatic, Normocephaly Cardiac: Reg Rate and Rhythm, Normal S1 and S2 Lungs: Normal Breath Sounds Neuro: Alert and responsive Abdomen: Soft Skin: No rashes noted on visualized skin Musculoskeletal: No Chest Wall Tenderness Extremities: No Edema, Normal Pulses Results 03/09/18 03:15 03/09/18 03:15 Lab Results 03/09/18 03:15 Sodium 135 L Potassium 3.8 Chloride 100 Carbon Dioxide 18 L BUN 20 Creatinine 1.12 Glucose 107 H Calcium 9.2 Troponin I < 0.03 Active Medications Albuterol Sulfate (Albuterol Inhaler) 2 puff IH Q6H PRN PRN Reason: Dyspnea Stop: 09/07/18 18:32 Last Admin: 03/09/18 23:58 Dose: 2 puff Aspirin (Aspirin Ec) 81 mg PO DAILY [facility] Stop: 09/08/18 09:01 Last Admin: 03/10/18 08:15 Dose: 81 mg Atenolol (Tenormin) 100 mg PO DAILY [facility] Stop: 09/08/18 14:16 Last Admin: 03/10/18 08:15 Dose: 100 mg Chlorthalidone (Chlorthalidone) 25 mg PO DAILY [facility] Stop: 09/08/18 14:31 Last Admin: 03/10/18 08:15 Dose: 25 mg Cyclobenzaprine HCl (Flexeril) 10 mg PO HS [facility] Stop: 09/07/18 21:01 Last Admin: 03/09/18 20:10 Dose: 10 mg Diltiazem HCl (Cardizem) 30 mg PO Q6HR [facility] Stop: 09/08/18 12:01 Last Admin: 03/10/18 05:03 Dose: 30 mg Gabapentin (Neurontin) 300 mg PO BID [facility] Stop: 09/07/18 21:01 Last Admin: 03/10/18 08:15 Dose: 300 mg Losartan Potassium (Cozaar) 50 mg PO DAILY [facility] Stop: 09/08/18 09:01 Last Admin: 03/10/18 08:14 Dose: 50 mg Naloxone HCl (Narcan) 0.4 mg IVP Q2MIN PRN PRN Reason: SEE COMMENTS Stop: 09/07/18 18:29 Nicotine (Nicoderm) 21 mg TD DAILY [facility] PRN Reason: Protocol Stop: 09/07/18 18:46 Last Admin: 03/09/18 09:38 Dose: 21 mg Omeprazole (Prilosec) 20 mg PO DAILY@0730 [facility] PRN Reason: Protocol Stop: 09/08/18 07:31 Last Admin: 03/10/18 08:15 Dose: 20 mg Oxycodone/Acetaminophen (Percocet 5/325) 1 each PO TID PRN PRN Reason: Pain Stop: 09/07/18 18:32 Last Admin: 03/10/18 05:03 Dose: 1 each Paroxetine HCl (Paxil) 20 mg PO DAILY [facility] PRN Reason: Protocol Stop: 09/08/18 09:01 Last Admin: 03/10/18 08:15 Dose: 20 mg Pharmacy Profile Note (Patient Taking Own Medication) 1 each IH DAILY [facility] Stop: 09/08/18 09:01 Rivaroxaban (Xarelto) 20 mg PO 1700 [facility] Stop: 09/08/18 17:01 Last Admin: 03/09/18 17:10 Dose: 20 mg Simvastatin (Zocor) 10 mg PO DAILY [facility] Stop: 09/08/18 09:01 Last Admin: 03/10/18 08:14 Dose: 10 mg - Imaging and Cardiology Echo: report reviewed - EKG Interpretation EKG results cardiology: personally reviewed Consult Discharge Plan - Plan Referrals: Rakan Hamlin CNP [Primary Care Provider] - 03/15/18 10:20 am (The patient will be seeing Denton Cummings on this scheduled visit.) Prescriptions: Diltiazem HCl [Cardizem LA] 120 mg PO ONCE 30 Days #30 tab.er.24h Rivaroxaban [Xarelto] 20 mg PO ONCE 30 Days #30 tablet
--- NOTE | 2018-03-10 16:03 | Event Note ---
Date of Encounter: 03/10/18 Time of Encounter: 16:01 Patient was seen and examined. I agree with the progress note as written by the resident physician. Patient admitted with aflutter and has been on cardizem drip then switched to oral. Cardiology saw and is s/p DCCV today that was successful. Noted to have new cardiomyopathy. Started on heparin drip and needs anticoags for a month. GEN: NAD CVS: regular S1, S2, No m/r/g RESP: CTAB ABD: Soft, NT, ND, +BS EXT: No edema. 2+ DP. 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
[2018-03-10] MEDS: *HR* Rivaroxaban 10 MG TABLET PO SCH (16:11)
[2018-03-10] MEDS: Nicotine 21 MG PATCH.TD24 TD SCH (16:13)
[2018-03-10] MEDS: UMECLIDINIUM BROMIDE 62.5 MCG IH SCH ×2 (16:18→16:25)
--- NOTE | 2018-03-10 16:41 | Internal Med Progress Note ---
Date of Encounter: 03/10/18 Time of Encounter: 04:40 - Assessment and plan (1) Atrial flutter with rapid ventricular response Current Visit: Yes Status: Acute Assessment and plan: Incidental findings during pre-op evaluation. Has chronic shortness of breath denies it is worse than baseline. Likely has underlying sleep apnea, never had a previous sleep evaluation for sleep apnea. Does not drink any caffeine. He drinks 1/5 of hard alcohol a week. -At admission heart rate was in the 130s to 140s and after starting IV cardizem drip it is regular rate of 70s. -Troponin x3 negative -No electrolyte abnormality -Cardiology consulted -CHADsVac score of 1, continue aspirin -He also had an NGHIA and cardioversion, which converted him back to sinus rhythm -Echocardiogram showed an EF of 60% but was not well visualized so he is scheduled for a stress echo tomorrow -NPO after midnight tonight (2) Tobacco abuse Current Visit: Yes Status: Acute Assessment and plan: counseling on smoking cessation -Not interested in quitting at this time -NRT (3) Hypertension Current Visit: Yes Status: Acute Assessment and plan: No acute hypertension. Controlled blood pressure. -Continue home losartan 50 mg daily -Continue atenolol and chlorthalidone Qualifiers: Hypertension type: essential hypertension Qualified Code(s): I10 - Essential (primary) hypertension (4) Morbid obesity Current Visit: Yes Status: Chronic Assessment and plan: Aflutter and HTN likely a complication of morbid obesity and probable untreated KAVITHA will benefit from sleep study outpatient -Lifestyle modification -Discussed the benefit of a sleep study outpatient (5) Chronic knee pain Current Visit: Yes Status: Acute Assessment and plan: He was chronic knee pain, most likely secondary to his body habitus. Was having pre-op evaluation for knee surgery prior to requiring admission. No edema or erythema noted. -On home dose of percocet 5/325 TID -Can continue percocet inpatient Qualifiers: Laterality: bilateral Qualified Code(s): M25.561 - Pain in right knee; M25.562 - Pain in left knee; G89.29 - Other chronic pain (6) DVT prophylaxis Current Visit: Yes Status: Acute Assessment and plan: SQ heparin - Time Spent With Patient Total time spent is greater than 50% in coordination of care (as documented) at patient's floor/unit and/or counseling patient: - Subjective Interval history: Mr. Bergman was seen at bedside this morning. He presented to the ED yesterday after his pre-operative testing for knee arthroscopy showed 2: 1 conduction atrial flutter. There were no other changes on his EKG. At the ED he received IV lopressor and was transitioned to IV cardizem drip upon admission. He is on 30 mg cardizem QID and his heart rate is controlled but still irregular rhythm. He is comfortable and has no complaints. He denied chest pain at rest or with exertion, heart palpitation, fever, chills, nausea, vomiting or diaphoresis. - Constitutional Vitals: Temp Pulse Resp BP Pulse Ox 97.9 F 74 16 141/81 97 03/10/18 10:21 03/10/18 10:21 03/10/18 10:21 03/10/18 10:21 03/10/18 10:21 General appearance: Present: A&O X 3, no acute distress, answers questions appropriately - Head Head exam: Present: atraumatic, normocephalic - Eye Eye exam: Present: EOMI, sclera anicteric - ENT ENT exam: Present: mucous membranes moist - Neck Neck exam general surgery: Present: full ROM, trachea midline - Respiratory Respiratory exam: Present: CTAB. Absent: rales, stridor, wheezes - Cardiovascular Cardiovascular exam: Present: RRR. Absent: clicks, gallop, JVD - GI/Abdominal GI/Abdominal exam: Present: soft. Absent: firm, rigid - Extremities Exam Extremities exam: Present: full ROM, warm. Absent: pedal edema, tenderness - Skin Skin exam: Present: dry, intact. Absent: warm Internal Medicine: Result - Labs CBC & Chem 7: 03/09/18 03:15 03/09/18 03:15 Labs: BMP 03/09/18 03:15 Sodium 135 L Potassium 3.8 Chloride 100 Carbon Dioxide 18 L BUN 20 Creatinine 1.12 Glucose 107 H Calcium 9.2 Cardiac Enzymes 03/09/18 Range/Units 03:15 Troponin I < 0.03 (< 0.04) ng/mL Consult Discharge Plan - Plan Referrals: Rakan Hamlin CNP [Primary Care Provider] - 03/15/18 10:20 am (The patient will be seeing Denton Cummings on this scheduled visit.) Prescriptions: Diltiazem HCl [Cardizem LA] 120 mg PO ONCE 30 Days #30 tab.er.24h Rivaroxaban [Xarelto] 20 mg PO ONCE 30 Days #30 tablet
--- NOTE | 2018-03-10 18:24 | Electrocardiograph Report ---
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
--- NOTE | 2018-03-10 18:29 | Electrocardiograph Report ---
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
[2018-03-11] MEDS: *HR* OxyCODONE/APAP 5/325 TABLET PO PRN ×3 (05:50→19:38)
[2018-03-11] MEDS ORDERED: Regadenoson 0.4 MG/5 ML SYRINGE IVP ONE ×2 (08:03→09:56)
--- NOTE | 2018-03-11 09:53 | Event Note ---
Date of Encounter: 03/11/18 Time of Encounter: 09:52 Patient was seen and examined. I agree with the progress note as written by the resident physician. Patient admitted with aflutter and has been on cardizem drip then switched to oral. Cardiology saw and is s/p DCCV 03/10 that was successful. Noted to have new cardiomyopathy. stress test 1st part today. GEN: NAD CVS: regular S1, S2, No m/r/g RESP: CTAB ABD: Soft, NT, ND, +BS EXT: No edema. 2+ DP. No rashes NEURO: Nonfocal xarelto for anticoag Continue rate control echo noted quarter trimmer following s/p DCCV 03/11 continue home antihypertensives 2 part stress test. To finish tomorrow
--- NOTE | 2018-03-11 10:01 | Internal Med Progress Note ---
Date of Encounter: 03/11/18 Time of Encounter: 10:00 - Assessment and plan (1) Atrial flutter with rapid ventricular response Current Visit: Yes Status: Acute Assessment and plan: Incidental findings during pre-op evaluation. Has chronic shortness of breath denies it is worse than baseline. Likely has underlying sleep apnea, never had a previous sleep evaluation for sleep apnea. Does not drink any caffeine. He drinks 1/5 of hard alcohol a week. -At admission heart rate was in the 130s to 140s and after starting IV cardizem drip it is regular rate of 70s. -Troponin x3 negative -No electrolyte abnormality -Cardiology consulted -CHADsVac score of 1, continue aspirin -He also had an NGHIA and cardioversion, which converted him back to sinus rhythm -Echocardiogram showed an EF of 60% but was not well visualized -Due to concern for cardiomyopathy he underwent a 2 part stress echo, first part of stress echo completed -Second part of stress echo tomorrow -Continue cardiac diet -NPO after midnight (2) Tobacco abuse Current Visit: Yes Status: Acute Assessment and plan: counseled on smoking cessation -off the nicotine patch due to two part stress echo (3) Hypertension Current Visit: Yes Status: Acute Assessment and plan: No acute hypertension. Controlled blood pressure. -Continue home losartan 50 mg daily -Continue atenolol and chlorthalidone Qualifiers: Hypertension type: essential hypertension Qualified Code(s): I10 - Essential (primary) hypertension (4) Morbid obesity Current Visit: Yes Status: Chronic Assessment and plan: Aflutter and HTN likely a complication of morbid obesity and probable untreated KAVITHA will benefit from sleep study outpatient -Lifestyle modification -Discussed the benefit of a sleep study outpatient -Awaiting overnight oximetry results (5) Chronic knee pain Current Visit: Yes Status: Acute Assessment and plan: He was chronic knee pain, most likely secondary to his body habitus. Was having pre-op evaluation for knee surgery prior to requiring admission. No edema or erythema noted. -On home dose of percocet 5/325 TID -Can continue percocet inpatient Qualifiers: Laterality: bilateral Qualified Code(s): M25.561 - Pain in right knee; M25.562 - Pain in left knee; G89.29 - Other chronic pain (6) DVT prophylaxis Current Visit: Yes Status: Acute Assessment and plan: SQ heparin - Time Spent With Patient Total time spent is greater than 50% in coordination of care (as documented) at patient's floor/unit and/or counseling patient: - Subjective Interval history: Mr. Bergman was seen at bedside this morning. He was admitted for newly diagnosed a flutter seen during knee arthroscopy. There were no other changes on his EKG. At the ED he received IV lopressor and was transitioned to IV cardizem drip upon admission. He is on 30 mg cardizem QID and his heart rate is controlled but still irregular rhythm and xarelto. He is comfortable and has no complaints. He denied chest pain at rest or with exertion, heart palpitation, fever, chills, nausea, vomiting or diaphoresis. - Constitutional Vitals: Temp Pulse Resp BP Pulse Ox 97.6 F 74 15 120/56 97 03/11/18 06:33 03/11/18 06:33 03/11/18 06:33 03/11/18 06:33 03/11/18 06:33 General appearance: Present: A&O X 3, no acute distress, answers questions appropriately - Head Head exam: Present: atraumatic, normocephalic - Eye Eye exam: Present: EOMI, sclera anicteric - ENT ENT exam: Present: mucous membranes moist - Neck Neck exam general surgery: Present: full ROM, trachea midline - Respiratory Respiratory exam: Present: CTAB. Absent: rales, stridor, wheezes - Cardiovascular Cardiovascular exam: Present: RRR. Absent: clicks, gallop, JVD - GI/Abdominal GI/Abdominal exam: Present: soft. Absent: firm, rigid - Extremities Exam Extremities exam: Absent: calf tenderness, pedal edema, tenderness, warm - Skin Skin exam: Present: dry, intact, warm. Absent: diaphoretic, rash Internal Medicine: Result - Labs CBC & Chem 7: 03/09/18 03:15 03/09/18 03:15 - Impressions Impressions Transesophageal w/Cardioversion 03/10/18 08:03 Impressions: LVEF 35%. Global hypokinesis. Mildly dilated right ventricle with normal function. No significant valvular dysfunction. LA appendage is normal in appearance. No thrombus. Successful synchronized cardioversion using 300 Joules. No neurological deficits after the procedure. Left Ventricular Wall Motion: Transesophageal Echo Findings The apex, apical lateral, apical inferior, apical septal, apical anterior, mid anterior lateral, mid inferior lateral, mid inferior, mid inferior septal, mid anterior septal, basal anterior lateral, basal inferior lateral, basal inferior, basal inferior septal, basal anterior septal, basal anterior and mid anterior chan were hypokinetic. Medication Given: Time Medication Dose Units Route 10:45 Versed 2 mg IV 10:45 Fentanyl 25 mcg IV 10:50 Versed 2 mg IV 10:50 Fentanyl 25 mcg IV 10:59 Versed 2 mg IV 10:59 Fentanyl 25 mcg IV Findings: Study Quality * Technically adequate exam. ECG Findings * Atrial fib without ectopy Left Ventricle * LVEF 35%. Global hypokinesis. Right Ventricle * Mildly dilated right ventricle with normal function. Left Atrium * Moderately dilated left atrium. * LA appendage is normal in appearance. No thrombus. Right Atrium * Mildly dilated right atrium. Aortic Valve * The aortic valve is tricuspid. * No aortic regurgitation. * No aortic stenosis. Mitral Valve * Normal structure and function * No mitral regurgitation. * No mitral stenosis. Tricuspid Valve * Normal structure and function. * No tricuspid regurgitation. * Unable to assess RVSP due to lack of TR. Pulmonic Valve * Normal structure and function. * No pulmonic regurgitation. Aorta * The aortic root is not dilated. Pericardium * No pericardial effusion. Consult Discharge Plan - Plan Referrals: Rakan Hamlin CNP [Primary Care Provider] - 03/15/18 10:20 am (The patient will be seeing Denton Cummings on this scheduled visit.) Prescriptions: Diltiazem HCl [Cardizem LA] 120 mg PO ONCE 30 Days #30 tab.er.24h Rivaroxaban [Xarelto] 20 mg PO ONCE 30 Days #30 tablet Rivaroxaban [Xarelto] 20 mg PO DAILY #30 tablet
[2018-03-11] MEDS: Aspirin Enteric Coated 81 MG Tablet PO SCH (10:37)
[2018-03-11] MEDS: Gabapentin 300 MG CAPSULE PO SCH ×2 (10:38→19:38)
--- NOTE | 2018-03-11 11:30 | Cardiology Progress Note ---
Date of Encounter: 03/11/18 Time of Encounter: 11:00 Assessment and Plan (1) Atrial flutter with rapid ventricular response Current Visit: Yes Status: Acute Presented with new A-Flutter from [facility]--unclear onset. Denies chest pain or palpitation. HR 140s on presentation Mag, K and TSH WNL. Troponins negative x 3. s/p successful NGHIA guided DCCV today, remains in NSR upon exam. Preliminary results reviewed with Dr. Canales, LVEF appears to be reduced. Continue BB for now, await results of stress to determine if continuing CCB appropriate. Suspect cardiomyopathy may be tachycardia induced. However given risk factors for CAD, recommend ischemic evaluation. Patient is agreeable. Given BMI, he will be a 2-day study, patient aware. Also suspect untreated KAVITHA driving factor, will order overnight 02 trend. Continue Xarelto for AC. Discussion w patient/family: The assessment and plan as outlined above was discussed with the patient and/or family members who expressed understanding and agreement. All questions were answered. Thank you for involving us in the care of your patient. Please call with any questions. The patient will be discussed and reviewed with Dr. Pringle; changes to be made accordingly. Subjective Principal diagnosis: Aflutter Interval history: Seen and examined. No complaints today upon exam. Remains in NSR, HR 70's upon exam. No chest pain/discomfort or any other complaints. Objective General: Conversant, Other (morbidly obese) HEENT: Atraumatic, Normocephaly Cardiac: Reg Rate and Rhythm, Normal S1 and S2 Lungs: Normal Breath Sounds Neuro: Alert and responsive Abdomen: Soft Skin: No rashes noted on visualized skin Musculoskeletal: No Chest Wall Tenderness Extremities: No Edema, Normal Pulses Results 03/09/18 03:15 03/09/18 03:15 Active Medications Albuterol Sulfate (Albuterol Inhaler) 2 puff IH Q6H PRN PRN Reason: Dyspnea Stop: 09/07/18 18:32 Last Admin: 03/09/18 23:58 Dose: 2 puff Aspirin (Aspirin Ec) 81 mg PO DAILY [facility] Stop: 09/08/18 09:01 Last Admin: 03/11/18 10:37 Dose: 81 mg Atenolol (Tenormin) 100 mg PO DAILY [facility] Stop: 09/08/18 14:16 Last Admin: 03/11/18 10:39 Dose: 100 mg Chlorthalidone (Chlorthalidone) 25 mg PO DAILY [facility] Stop: 09/08/18 14:31 Last Admin: 03/11/18 10:38 Dose: 25 mg Cyclobenzaprine HCl (Flexeril) 10 mg PO HS [facility] Stop: 09/07/18 21:01 Last Admin: 03/10/18 22:33 Dose: 10 mg Diltiazem HCl (Cardizem) 30 mg PO Q6HR [facility] Stop: 09/08/18 12:01 Last Admin: 03/11/18 05:49 Dose: 30 mg Gabapentin (Neurontin) 300 mg PO BID [facility] Stop: 09/07/18 21:01 Last Admin: 03/11/18 10:38 Dose: 300 mg Losartan Potassium (Cozaar) 50 mg PO DAILY [facility] Stop: 09/08/18 09:01 Last Admin: 03/11/18 10:38 Dose: 50 mg Naloxone HCl (Narcan) 0.4 mg IVP Q2MIN PRN PRN Reason: SEE COMMENTS Stop: 09/07/18 18:29 Nicotine (Nicoderm) 21 mg TD DAILY [facility] PRN Reason: Protocol Stop: 09/07/18 18:46 Last Admin: 03/10/18 16:13 Dose: Not Given Omeprazole (Prilosec) 20 mg PO DAILY@0730 [facility] PRN Reason: Protocol Stop: 09/08/18 07:31 Last Admin: 03/11/18 10:37 Dose: 20 mg Oxycodone/Acetaminophen (Percocet 5/325) 1 each PO TID PRN PRN Reason: Pain Stop: 09/07/18 18:32 Last Admin: 03/11/18 05:50 Dose: 1 each Paroxetine HCl (Paxil) 20 mg PO DAILY [facility] PRN Reason: Protocol Stop: 09/08/18 09:01 Last Admin: 03/11/18 10:39 Dose: 20 mg Pharmacy Profile Note (Patient Taking Own Medication) 1 each IH DAILY [facility] Stop: 09/08/18 09:01 Last Admin: 03/10/18 16:25 Dose: Not Given Rivaroxaban (Xarelto) 20 mg PO 1700 [facility] Stop: 09/08/18 17:01 Last Admin: 03/10/18 16:11 Dose: 20 mg Simvastatin (Zocor) 10 mg PO DAILY [facility] Stop: 09/08/18 09:01 Last Admin: 03/11/18 10:39 Dose: 10 mg - Imaging and Cardiology Stress Test: pending Echo: report reviewed - EKG Interpretation EKG results cardiology: personally reviewed Consult Discharge Plan - Plan Referrals: Rakan Hamlin CNP [Primary Care Provider] - 03/15/18 10:20 am (The patient will be seeing Denton Cummings on this scheduled visit.) Prescriptions: Diltiazem HCl [Cardizem LA] 120 mg PO ONCE 30 Days #30 tab.er.24h Rivaroxaban [Xarelto] 20 mg PO ONCE 30 Days #30 tablet Rivaroxaban [Xarelto] 20 mg PO DAILY #30 tablet
[2018-03-11] MEDS: UMECLIDINIUM BROMIDE 62.5 MCG IH SCH (15:15)
[2018-03-11] MEDS: *HR* Rivaroxaban 10 MG TABLET PO SCH (17:16)
[2018-03-12] MEDS: *HR* OxyCODONE/APAP 5/325 TABLET PO PRN ×2 (02:14→09:19)
[2018-03-12 02:36] LABS: Magnesium 1.9 mg/dL (1.6-2.6); Potassium 4.5 mEq/L (3.5-5.1)
[2018-03-12] MEDS: Aspirin Enteric Coated 81 MG Tablet PO SCH (09:16)
[2018-03-12] MEDS: Gabapentin 300 MG CAPSULE PO SCH (09:16)
[2018-03-12] MEDS: UMECLIDINIUM BROMIDE 62.5 MCG IH SCH (09:17)
[2018-03-12 11:22] VITALS: BP 126/72
--- NOTE | 2018-03-12 11:53 | Discharge Summary ---
<Keenan Fletcher - Last Filed: 03/12/18 11:48> - NOTES TO OUTPATIENT PROVIDER Notes to Outpatient Provider: patient admitted for shortness of breath. Found to be in a flutter. Will be discharged on Cardizem and xeralto. Also underwent stress test which was shown to have ischemia versus artifact currently will be managed by cardiology outpatient. Cardiology noted possible left chest wall breast mass needs to be followed up. Also needs sleep study. Orders not resulted at time of discharge: Pending orders 03/11/18 07:00 NM amna perf SPECT multi [NM] Routine Date of Encounter: 03/12/18 Time of Encounter: 11:54 - Discharge Diagnosis (1) Atrial flutter with rapid ventricular response Priority: Primary Status: Acute (2) Tobacco abuse Priority: Secondary Status: Chronic (3) Hypertension Priority: Secondary Status: Chronic Qualifiers: Hypertension type: essential hypertension Qualified Code(s): I10 - Essential (primary) hypertension (4) Morbid obesity Priority: Secondary Status: Chronic (5) DVT prophylaxis Priority: Secondary Status: Acute (6) Chronic knee pain Priority: Secondary Status: Chronic Qualifiers: Laterality: bilateral Qualified Code(s): M25.561 - Pain in right knee; M25.562 - Pain in left knee; G89.29 - Other chronic pain Hospital course: Mr. Bergman is a 52 year old male presented with chief, shortness of breath. He was found to be in a flutter with rapid ventricular response initially started on Cardizem drip and heparin drip. Cardizem was some gtt. was converted to Cardizem by mouth. And patient was started on xeralto with cardiology doing prior authorization. He underwent successful NGHIA guided DCCV with cardiology noticing that his left ventricular ejection fraction was reduced. This excessive cardiomyopathy and patient underwent stress test. Stress test was equivocal vocal with ischemia versus artifact. Cardiology reported patient can follow-up in their office for further evaluation. Also patient needs to be worked up for sleep apnea as likely cause of his a flutter. He also needs to be followed up on possible left breast mass as some artifact was noted to light up in left breast wall chest. was also given nicotine patches as he would like to quit smoking. Today he is tolerating his diet, ambulating independently and has no difficulty having bowel movements or urination. Discharge discussed with: patient, family Time spent discussing smoking cessation with patient: more than 10 minutes - Time Spent with Patient Total time spent providing and/or coordinating discharge services: Greater than 30 minutes - Discharge Medications Prescriptions: Diltiazem HCl [Cardizem LA] 120 mg PO ONCE 30 Days #30 tab.er.24h Nicotine Patch [Nicoderm] 21 mg TD DAILY #14 patch.td24 Rivaroxaban [Xarelto] 20 mg PO ONCE 30 Days #30 tablet Home Medications: Albuterol Sulfate [Proair Hfa] 2 puff IH Q6H PRN 03/08/18 [History] Atenolol/Chlorthalidone [Tenoretic 100 Tablet] 1 tab PO DAILY 03/08/18 [History] Cyclobenzaprine [Flexeril] 10 mg PO HS 03/08/18 [History] Gabapentin [Neurontin] 300 mg PO BID 03/08/18 [History] Losartan Potassium [Cozaar] 50 mg PO DAILY 03/08/18 [History] Omeprazole [PriLOSEC] 20 mg PO DAILY 03/08/18 [History] Oxycodone HCl/Acetaminophen [Percocet 5-325 mg Tablet] 1 tab PO TID PRN [History] Paroxetine [Paxil] 20 mg PO DAILY 03/08/18 [History] Pravastatin Sodium [Pravachol] 20 mg PO DAILY 03/08/18 [History] Umeclidinium [place] [Incruse Ellipta] 1 puff IH DAILY 03/08/18 [History] Diltiazem HCl [Cardizem LA] 120 mg PO ONCE 30 Days #30 tab.er.24h 03/10/18 [Rx] Rivaroxaban [Xarelto] 20 mg PO ONCE 30 Days #30 tablet 03/10/18 [Rx] Nicotine Patch [Nicoderm] 21 mg TD DAILY #14 patch.td24 03/12/18 [Rx] Allergies/Adverse Reactions: 3 Allergy/AdvReac Type Severity Reaction Status Date / Time meloxicam [From Mobic] AdvReac Difficulty Verified 03/08/18 15:48 Breathing Date of admission: 03/08/18 20:39 Primary care physician: Rakan Hamlin CNP Consults: cardiology Discharging clinician: Keenan Fletcher Anticipated date of discharge: 03/12/18 - Constitutional Vitals: Temp Pulse Resp BP Pulse Ox 98.2 F 60 16 126/72 96 03/12/18 11:19 03/12/18 11:19 03/12/18 11:19 03/12/18 11:19 03/12/18 11:19 General appearance: Present: A&O X 3, no acute distress, answers questions appropriately - Other Additional findings: General: plesant without distress HEENT: Head atraumatic, normocephalic, EOMI, PERRL, neck nontender to palpation , absent lymphadenopathy, Moist Mucous Membranes, Heart: Regular rate and rhythm with no murmur Lungs: Clear to auscultation bilaterally Abdomen: Soft nontender, nondistended positive bowel sounds Skin: warm and dry, absent rash Extremities: Absent pedal edema, Neuro: Cranial nerves II through XII intact, UE and LE sensation equal bilaterally, UE and LEstrength 5/5, alert oriented 3, Heel to zepeda intact, finger to nose intact, Gait intact, rhombergs sign negative, b/l plantar reflexes downwards Vascular: Pedal and radial pulses 2 out of 4 - Patient Status Disposition: Home, Self-Care Condition: Fair Functional capacity at discharge: independent ambulation Overall status at discharge: patient is progressing back to baseline - Discharge Instructions Instructions: Atrial Flutter (DC), Chronic Hypertension (DC) Follow Up With: Rakan Hamlin CNP [Primary Care Provider] - 03/15/18 10:20 am (The patient will be seeing Denton Cummings on this scheduled visit.) - Diet and Activity Activity: increase activity as tolerated Diet: low fat, low cholesterol, low salt diet <Asim Diaz - Last Filed: 03/12/18 12:38> Orders not resulted at time of discharge: Pending orders 03/11/18 07:00 NM amna perf SPECT multi [NM] Routine Date of Encounter: 03/12/18 - Discharge Diagnosis (1) Atrial flutter with rapid ventricular response Status: Acute (2) Tobacco abuse Status: Chronic (3) Hypertension Status: Chronic Qualifiers: Hypertension type: essential hypertension Qualified Code(s): I10 - Essential (primary) hypertension (4) Morbid obesity Status: Chronic (5) DVT prophylaxis Status: Acute (6) Chronic knee pain Status: Chronic Qualifiers: Laterality: bilateral Qualified Code(s): M25.561 - Pain in right knee; M25.562 - Pain in left knee; G89.29 - Other chronic pain Hospital course: Mr. Bergman is a 52 year old male - Time Spent with Patient Total time spent providing and/or coordinating discharge services: Date of admission: 03/08/18 20:39 Primary care physician: Rakan Hamlin CNP - Constitutional Vitals: Temp Pulse Resp BP Pulse Ox 98.2 F 60 16 126/72 96 03/12/18 11:19 03/12/18 11:19 03/12/18 11:19 03/12/18 11:19 03/12/18 11:19 - Attending Attestation Patient was seen and examined. I agree with the discharge summary as dictated above by the resident physician. Discharge plans and recommendations were made under my direct supervision.
--- NOTE | 2018-03-12 11:55 | Cardiology Progress Note ---
Date of Encounter: 03/12/18 Time of Encounter: 11:40 Assessment and Plan (1) Atrial flutter with rapid ventricular response Current Visit: Yes Status: Acute Presented with new A-Flutter from [facility]--unclear onset. Denies chest pain or palpitation. HR 140s on presentation Mag, K and TSH WNL. Troponins negative x 3. Also suspect untreated KAVITHA driving factor for AF overnight 02 trend ordered-- defer Hospitalist to manage. s/p successful NGHIA guided DCCV 03/10/18, remains in NSR upon exam. Preliminary results reviewed with Dr. Canales, LVEF appears to be reduced, however EF on TTE is normal. Continue BB and CCB. Stress test completed: gated EF=54%, there is a small perfusion defect in the distal inferior wall in which ischemia cannot be excluded; discussed medical management vs. LHC; at that time patient prefers medical management and to watch and monitor symptoms. No chest pain reported. Continue Xarelto for AC. Discussion w patient/family: The assessment and plan as outlined above was discussed with the patient and/or family members who expressed understanding and agreement. All questions were answered. Thank you for involving us in the care of your patient. Please call with any questions. The patient will be discussed and reviewed with Dr. Pringle; changes to be made accordingly. Subjective Principal diagnosis: Aflutter Interval history: Seen and examined. No complaints today upon exam. Remains in NSR, HR 70's upon exam. Objective Vital Signs, Last 4 Hours Temp Pulse Resp BP Pulse Ox 03/12/18 11:19 98.2 F 60 16 126/72 96 General: Conversant, Other (morbidly obese) HEENT: Atraumatic, Normocephaly Cardiac: Reg Rate and Rhythm, Normal S1 and S2 Lungs: Normal Breath Sounds Neuro: Alert and responsive Abdomen: Soft Skin: No rashes noted on visualized skin Musculoskeletal: No Chest Wall Tenderness Extremities: No Edema, Normal Pulses Results 03/09/18 03:15 03/12/18 02:09 Lab Results 03/12/18 02:09 Potassium 4.5 Magnesium 1.9 Active Medications Albuterol Sulfate (Albuterol Inhaler) 2 puff IH Q6H PRN PRN Reason: Dyspnea Stop: 09/07/18 18:32 Last Admin: 03/09/18 23:58 Dose: 2 puff Aspirin (Aspirin Ec) 81 mg PO DAILY [facility] Stop: 09/08/18 09:01 Last Admin: 03/12/18 09:16 Dose: 81 mg Atenolol (Tenormin) 100 mg PO DAILY [facility] Stop: 09/08/18 14:16 Last Admin: 03/12/18 09:17 Dose: 100 mg Chlorthalidone (Chlorthalidone) 25 mg PO DAILY [facility] Stop: 09/08/18 14:31 Last Admin: 03/12/18 09:19 Dose: 25 mg Cyclobenzaprine HCl (Flexeril) 10 mg PO HS [facility] Stop: 09/07/18 21:01 Last Admin: 03/11/18 19:38 Dose: 10 mg Diltiazem HCl (Cardizem Cd) 120 mg PO DAILY [facility] Stop: 09/11/18 15:01 Gabapentin (Neurontin) 300 mg PO BID [facility] Stop: 09/07/18 21:01 Last Admin: 03/12/18 09:16 Dose: 300 mg Losartan Potassium (Cozaar) 50 mg PO DAILY [facility] Stop: 09/08/18 09:01 Last Admin: 03/12/18 09:17 Dose: 50 mg Naloxone HCl (Narcan) 0.4 mg IVP Q2MIN PRN PRN Reason: SEE COMMENTS Stop: 09/07/18 18:29 Omeprazole (Prilosec) 20 mg PO DAILY@0730 [facility] PRN Reason: Protocol Stop: 09/08/18 07:31 Last Admin: 03/12/18 09:16 Dose: 20 mg Oxycodone/Acetaminophen (Percocet 5/325) 1 each PO TID PRN PRN Reason: Pain Stop: 09/07/18 18:32 Last Admin: 03/12/18 09:19 Dose: 1 each Paroxetine HCl (Paxil) 20 mg PO DAILY [facility] PRN Reason: Protocol Stop: 09/08/18 09:01 Last Admin: 03/12/18 09:16 Dose: 20 mg Pharmacy Profile Note (Patient Taking Own Medication) 1 each IH DAILY [facility] Stop: 09/08/18 09:01 Last Admin: 03/12/18 09:17 Dose: Not Given Rivaroxaban (Xarelto) 20 mg PO 1700 [facility] Stop: 09/08/18 17:01 Last Admin: 03/11/18 17:16 Dose: 20 mg Simvastatin (Zocor) 10 mg PO DAILY [facility] Stop: 09/08/18 09:01 Last Admin: 03/12/18 09:16 Dose: 10 mg - Imaging and Cardiology Stress Test: report reviewed Echo: report reviewed - EKG Interpretation EKG results cardiology: personally reviewed Consult Discharge Plan - Plan Instructions: Atrial Flutter (DC), Chronic Hypertension (DC) Referrals: Rakan Hamlin CNP [Primary Care Provider] - 03/15/18 10:20 am (The patient will be seeing Denton Cummings on this scheduled visit.) Prescriptions: Diltiazem HCl [Cardizem LA] 120 mg PO ONCE 30 Days #30 tab.er.24h Rivaroxaban [Xarelto] 20 mg PO ONCE 30 Days #30 tablet Rivaroxaban [Xarelto] 20 mg PO DAILY #30 tablet
[2018-03-12] MEDS ORDERED: Diltiazem CD (24hr) 120 MG CAPSULE PO SCH (15:00)
== END 2018-03-12 12:59 | disposition home or self-care (01) | DRG 201 ==
LOC: 2NENU 14:57 → EMEROO 14:57 → 2NENU 21:01
PROVIDERS: ADMIT Internal Medicine; ATTEND Internal Medicine